=== PATIENT | female | born 1975 | race Caucasian/White ===

== ENCOUNTER 2020-05-24 09:11 | Outpatient (CLI) | payer BC, SELFPAY ==
--- NOTE | ~2020-05-24 | US_ITS ---
EXAMINATION: US retroperitoneal duplex ltd DATE: 05/24/2020 09:52 INDICATION: hypertension TECHNIQUE: Multiple grayscale, color Doppler, and pulsed Doppler images of the kidneys and renal forrest benedicto were obtained. COMPARISON: None. FINDINGS: The aorta peak systolic velocity is 92 cm/s. The right renal artery peak systolic velocity is 178 cm/ s in the proximal segment, 212 cm/s in the mid segment, and 152 cm/s in the distal segment. The left renal artery peak systolic velocity is 93 cm/s in the proximal segment, 162 cm/s in the mid segment, and 106 cm/s in the distal segment. IMPRESSION: 1. Elevated peak systolic velocities in the mid right renal artery consistent with hemodynamically s ignificant stenosis of estimated >50-60% stenosis. Reviewed, dictated and finalized at location B. SIFICATION AND TREATMENT DIRECTOR IMPRESSION: 1. Elevated peak systolic velocities in the mid right renal artery consistent with hemodynamically significant stenosis of estimated >50-60% stenosis.
== END 2020-05-24 09:12 | disposition home or self-care (01) ==
LOC: ANHIMG 09:19
PROVIDERS: PCP Internal Medicine; Visit Provider Internal Medicine
DX: I10 Essential (primary) hypertension (principal)
CPT/HCPCS: 93976

== ENCOUNTER 2020-07-08 07:53 | Outpatient (CLI) | payer BC, SELFPAY ==
--- NOTE | ~2020-07-08 | CT_ITS ---
EXAMINATION: CTA abdomen DATE: 07/08/2020 08:22 INDICATION: Severe hypertension TECHNIQUE: Computed tomographic angiography (CTA) of the abdomen was performed with 100 mL Omnipaque- 350 intravenous contrast. Maximum intensity projection 3D-reconstructions of the aorta and other forrest benedicto were constructed by the technologist on a separate workstation. The dose-length product (DLP) wa s 146.74 mGy-cm. Automated exposure control and iterative reconstruction technique were employed. COMPARISON: None. FINDINGS: The lung bases are clear. The heart size is normal. The spleen, pancreas,, and adrenal glan ds are normal. The gallbladder is not identified, likely surgically absent. There is a 4 mm enhancing lesion in liver segment VII which likely represents a flash filling hemangioma or possibly adenoma. The kidneys are unremarkable. There are no pathologically enlarged abdominal lymph nodes. A fat-conta ining umbilical hernia is noted. The celiac axis is normal at its origin. The right hepatic artery supplying the posterior right hepat ic lobe arises from the celiac axis. The left hepatic artery and right hepatic artery supplying the a nterior right hepatic lobe arises from the superior mesenteric artery. The superior mesenteric artery and inferior mesenteric artery are otherwise normal in appearance. There are two left and one right renal arteries. No hemodynamically significant stenosis is identified. IMPRESSION: 1. No CT correlate for the patient's symptoms. Reviewed, dictated and finalized at location A. T SECONDARY EDUCATION INSTRUCTOR
[2020-07-08 08:16] LABS: Estimated Glomerular Filt Rate > 60
== END 2020-07-08 07:54 | disposition home or self-care (01) ==
LOC: ANHIMG 07:57
PROVIDERS: PCP Internal Medicine; Visit Provider Internal Medicine Cardiovascular Disease
DX: I10 Essential (primary) hypertension (principal)
CPT/HCPCS: 74175; Q9967